=== PATIENT | female | born 1970 | race Caucasian/White ===

== ENCOUNTER 2019-12-10 08:53 | Emergency (ER) | payer MEDICAID, OTHER ==
[~2019-12-10] VITALS: Ht 154.9 cm; Wt 64.0 kg
[2019-12-10 10:43] VITALS: BP 125/81
== END 2019-12-10 15:12 | disposition home or self-care (01) ==
LOC: ER 08:53
DX: J06.9 Acute upper respiratory infection, unspecified (principal)
CPT/HCPCS: 99283

== ENCOUNTER 2022-05-14 23:02 | Emergency (ER) | payer OTHER ==
[~2022-05-14] VITALS: Ht 157.5 cm; Wt 66.2 kg
[2022-05-15 04:05] VITALS: BP 112/78
== END 2022-05-15 04:05 | disposition home or self-care (01) ==
LOC: ER 23:02
DX: H57.12 Ocular pain, left eye (principal); R51.9 Headache, unspecified; Z90.49 Acquired absence of other specified parts of digestive tract
CPT/HCPCS: 70486; 99284

== ENCOUNTER 2023-03-16 11:52 | Emergency (ER) | payer BC, OTHER ==
[~2023-03-16] VITALS: Ht 154.9 cm; Wt 65.8 kg
[2023-03-16 12:07] VITALS: BP 110/77
[2023-03-16] MEDS ORDERED: MUPI15CR11 TP (13:50)
[2023-03-16] MEDS ORDERED: BACITRACIN ZINC OINT UDPKT TOP ONE (14:00)
== END 2023-03-16 14:16 | disposition home or self-care (01) ==
LOC: ER 11:52
DX: T21.11XA Burn of first degree of chest wall, initial encounter (principal); T31.0 Burns involving less than 10% of body surface; T79.9XXA Unspecified early complication of trauma, initial encounter; X08.8XXA Exposure to other specified smoke, fire and flames, initial encounter; Y93.89 Activity, other specified; Y92.89 Other specified places as the place of occurrence of the external cause; Y99.8 Other external cause status
CPT/HCPCS: 16000; 99282; 99283